=== PATIENT | male | born 2005 | race Asian ===

== ENCOUNTER 2025-02-17 01:22 | Emergency (ER) | payer MEDICAID ==
[~2025-02-17] VITALS: Ht 177.8 cm; Wt 68.2 kg
[2025-02-17 01:34] VITALS: BP 135/78; PULSE 93; RESP 18; TEMP 98.2; O2SAT 97
[2025-02-17] MEDS ORDERED: CEPH-558 PO (02:09)
[2025-02-17] MEDS ORDERED: SULF-261 PO (02:09)
[2025-02-17] MEDS: CEPHALEXIN MONOHYDRATE 500 MG CAPSULE PO ONE (02:23)
[2025-02-17] MEDS: SULFAMETHOX/TRIMETH DS 800-160 MG/TABLET PO ONE (02:23)
[2025-02-17] MEDS: BACITRACIN 28 GM OINTMENT TP ONE (02:23)
== END 2025-02-17 02:57 | disposition home or self-care (01) ==
LOC: EMS 01:24
DX: L03.031 Cellulitis of right toe (principal); Z72.89 Other problems related to lifestyle
CPT/HCPCS: 99284; Z7502; Z7610